=== PATIENT | male | born 1980 | race Caucasian/White ===

== ENCOUNTER 2023-07-14 23:39 | Inpatient (IN) | payer BC, OTHER ==
[2023-07-15] MEDS ORDERED: chlordiazePOXIDE HCL 25 MG CAPSULE PO PRN (01:34)
[2023-07-15] MEDS ORDERED: guaiFENesin 600 MG TABLET.ER (FP) PO PRN (01:40)
[2023-07-15] MEDS ORDERED: ONDANSETRON *ODT* 4 MG TABLET SL PRN (01:40)
[2023-07-15] MEDS ORDERED: BISMUTH SUBSALICYLATE 524 MG/30 ML PO PRN (01:40)
[2023-07-15] MEDS ORDERED: LOPERAMIDE HCL 2 MG CAPSULE PO PRN (01:40)
[2023-07-15] MEDS ORDERED: POLYETHYLENE GLYCOL (HEALTHYLAX) 3350 17 GM PACKET PO PRN (01:40)
[2023-07-15] MEDS ORDERED: MAG HYDROX/AL HYDROX/SIMETH 30 ML UNIT-DOSE CUP PO PRN (01:40)
[2023-07-15] MEDS ORDERED: BENZONATATE 200 MG CAPSULE PO PRN (01:40)
[2023-07-15] MEDS ORDERED: MAGNESIUM HYDROX 2400MG/30ML ORAL SUSPENSION 30 ML CUP PO PRN (01:40)
[2023-07-15] MEDS ORDERED: BENZOCAINE/MENTHOL (CHLORASEPTIC ) LOZENGE MM PRN (01:40)
[2023-07-15] MEDS ORDERED: IBUPROFEN 400 MG TABLET (FP) PO PRN (01:40)
[2023-07-15] MEDS ORDERED: LORazepam 1 MG TABLET PO PRN (01:43)
[2023-07-15] MEDS ORDERED: levETIRAcetam 500 MG TABLET (FP) PO ONE (01:59)
[2023-07-15] MEDS ORDERED: TRIMETHOBENZAMIDE HCL 200MG/2ML INJ IM ONE (01:59)
[2023-07-15] MEDS ORDERED: LISINOPRIL 10 MG TABLET ONE (02:00)
[2023-07-15] MEDS: levETIRAcetam 500 MG TABLET (FP) PO ONE (02:08)
[2023-07-15] MEDS: LISINOPRIL 20 MG TABLET PO ONE (02:08)
[2023-07-15] MEDS: LORazepam 2 MG TABLET PO ONE (02:08)
[2023-07-15] MEDS: TRIMETHOBENZAMIDE HCL 200MG/2ML INJ IM ONE (02:08)
[2023-07-15 03:18] VITALS: BMI 37.5
[2023-07-15] MEDS: chlordiazePOXIDE HCL 25 MG CAPSULE PO ONE (03:23)
[2023-07-15] MEDS: MELATONIN 5 MG TABLETS PO ONE (04:13)
[2023-07-15] MEDS: LORazepam 2 MG TABLET PO SCH (04:13)
[2023-07-15] MEDS ORDERED: chlordiazePOXIDE HCL 25 MG CAPSULE PO SCH (05:00)
[2023-07-15] MEDS: PRENATAL VITAMINS W/ FOLIC ACID TABLET (FP) PO SCH (10:07)
[2023-07-15] MEDS: ZONISAMIDE 100 MG CAPSULE PO SCH (10:46)
[2023-07-15] MEDS ORDERED: ZONISAMIDE 100 MG/10 ML ORAL SUSPENSION PO SCH (11:30)
[2023-07-15] MEDS ORDERED: PATIENT'S OWN MEDICATION (NON-FORMULARY) (Glatiramer Acetate [Copaxone] 40 MG/ML Syringe) SQ SCH (11:30)
[2023-07-15] MEDS: LISINOPRIL 20 MG TABLET PO SCH (12:15)
[2023-07-15] MEDS: THIAMINE 100 MG TABLET PO SCH (21:21)
[2023-07-15] MEDS: MELATONIN 5 MG TABLETS PO SCH (21:22)
[2023-07-16] MEDS ORDERED: chlordiazePOXIDE HCL 25 MG CAPSULE PO SCH (05:00)
[2023-07-16] MEDS: LORazepam 1 MG TABLET PO SCH (05:21)
[2023-07-16 09:29] VITALS: BP 154/100; PULSE 107; RESP 17; TEMP 97.8
[2023-07-16] MEDS ORDERED: LISINOPRIL 20 MG TABLET PO SCH (11:30)
[2023-07-16 11:35] LABS: POTASSIUM 3.5 mmol/L (3.5-5.1)
[2023-07-16 11:41] LABS: CALCIUM 9.3 mg/dL (8.5-10.1)
[2023-07-16 11:43] LABS: BILIRUBIN,TOTAL 4.2 mg/dL (0.2-1)
[2023-07-16 11:45] LABS: ALBUMIN 3.2 g/dl (3.4-5.0); TOT PROT 8.3 g/dl (6.4-8.2)
[2023-07-16 11:46] LABS: CREATININE 0.9 mg/dL (0.55-1.3)
[2023-07-16 11:48] LABS: BLOOD UREA NITROGEN 10.4 mg/dL (7-18)
[2023-07-16 11:53] LABS: HEMATOCRIT 43.2 % (35.4-49); HEMOGLOBIN 15.1 GM/dL (11.7-16.9); MCH 33.9 pg (25.7-33.7); MCHC 34.9 g/dl (32.0-35.9); MEAN CELL VOLUME 97.3 fl (80-96); MEAN PLT VOLUME 9.1 fl (7.5-11.1); PLATELET COUNT 80 10^3/uL (134-434); RBC 4.44 M/mm3 (4.00-5.60); RDW 14.6 % (11.9-15.9); WHITE BLOOD COUNT 3.2 K/mm3 (4.0-10.0)
[2023-07-17] MEDS ORDERED: LORazepam 0.5 MG TABLET PO PRN
[2023-07-17] MEDS ORDERED: chlordiazePOXIDE HCL 10 MG CAPSULE PO PRN
[2023-07-17] MEDS ORDERED: chlordiazePOXIDE HCL 10 MG CAPSULE PO SCH (05:00)
[2023-07-17] MEDS ORDERED: LORazepam 0.5 MG TABLET PO SCH (05:00)
[2023-07-18] MEDS ORDERED: LORazepam 0.5 MG TABLET PO ONE (05:00)
[2023-07-18] MEDS ORDERED: chlordiazePOXIDE HCL 10 MG CAPSULE PO SCH (05:00)
[2023-07-19] MEDS ORDERED: chlordiazePOXIDE HCL 10 MG CAPSULE PO ONE (05:00)
== END 2023-07-16 09:16 | disposition left against medical advice (07) | DRG 894 ==
LOC: YASAS 23:39 → Y3N 07-15 02:16
PROVIDERS: ADMIT Allergy & Immunology; ATTEND Surgery
PROC: HZ2ZZZZ Detoxification Services for Substance Abuse Treatment (ICD-10-PCS; principal; 2023-07-15)
DX: F10.230 Alcohol dependence with withdrawal, uncomplicated (principal); G35 Multiple sclerosis; G40.909 Epilepsy, unspecified, not intractable, without status epilepticus; I10 Essential (primary) hypertension; K21.9 Gastro-esophageal reflux disease without esophagitis
CPT/HCPCS: 36415; 80053; 80305; 85027; 86780; 93005; 93010

== ENCOUNTER 2023-07-26 21:55 | Inpatient (IN) | payer BC, OTHER ==
[2023-07-26 22:26] VITALS: BMI 37.3
[2023-07-26] MEDS ORDERED: LORazepam 1 MG TABLET PO PRN (22:36)
[2023-07-26] MEDS ORDERED: IBUPROFEN 600 MG TABLET (FP) PO PRN (22:38)
[2023-07-26] MEDS ORDERED: POLYETHYLENE GLYCOL (HEALTHYLAX) 3350 17 GM PACKET PO PRN (22:38)
[2023-07-26] MEDS ORDERED: ONDANSETRON *ODT* 4 MG TABLET SL PRN (22:38)
[2023-07-26] MEDS ORDERED: BISMUTH SUBSALICYLATE 524 MG/30 ML PO PRN (22:38)
[2023-07-26] MEDS ORDERED: ACETAMINOPHEN 325 MG TABLET (FP) PO PRN (22:38)
[2023-07-26] MEDS ORDERED: BENZOCAINE/MENTHOL (CHLORASEPTIC ) LOZENGE MM PRN (22:38)
[2023-07-26] MEDS ORDERED: IBUPROFEN 400 MG TABLET (FP) PO PRN (22:38)
[2023-07-26] MEDS ORDERED: BENZONATATE 200 MG CAPSULE PO PRN (22:38)
[2023-07-26] MEDS ORDERED: LOPERAMIDE HCL 2 MG CAPSULE PO PRN (22:38)
[2023-07-26] MEDS ORDERED: guaiFENesin 600 MG TABLET.ER (FP) PO PRN (22:38)
[2023-07-26] MEDS ORDERED: MAG HYDROX/AL HYDROX/SIMETH 30 ML UNIT-DOSE CUP PO PRN (22:38)
[2023-07-26] MEDS ORDERED: MAGNESIUM HYDROX 2400MG/30ML ORAL SUSPENSION 30 ML CUP PO PRN (22:38)
[2023-07-26] MEDS ORDERED: METOPROLOL TARTRATE 25 MG TABLET (FP) ONE (22:59)
[2023-07-26] MEDS ORDERED: LORazepam 2 MG TABLET ONE (22:59)
[2023-07-26] MEDS: LORazepam 2 MG TABLET PO SCH (23:03)
[2023-07-26] MEDS: METOPROLOL TARTRATE 25 MG TABLET (FP) PO ONE (23:04)
[2023-07-26] MEDS: DOCUSATE SODIUM 100 MG CAPSULE (FP) PO SCH (23:48)
[2023-07-26] MEDS: METHOCARBAMOL 500 MG TABLET PO PRN (23:53)
[2023-07-27] MEDS: LISINOPRIL 20 MG TABLET PO SCH (09:31)
[2023-07-27] MEDS: ZONISAMIDE 100 MG CAPSULE PO SCH (09:31)
[2023-07-27] MEDS: PRENATAL VITAMINS W/ FOLIC ACID TABLET (FP) PO SCH (09:32)
[2023-07-27] MEDS ORDERED: MELATONIN 5 MG TABLETS PO SCH (22:00)
[2023-07-27] MEDS: MELATONIN 5 MG TABLETS PO SCH (22:39)
[2023-07-27] MEDS: THIAMINE 100 MG TABLET PO SCH (22:39)
[2023-07-28] MEDS: LORazepam 1 MG TABLET PO SCH (05:35)
[2023-07-29] MEDS ORDERED: LORazepam 0.5 MG TABLET PO PRN
[2023-07-29] MEDS: LORazepam 0.5 MG TABLET PO SCH (05:44)
[2023-07-30] MEDS: LORazepam 0.5 MG TABLET PO ONE (05:38)
[2023-07-30 07:46] VITALS: BP 144/98; PULSE 92; RESP 17; TEMP 98.2
== END 2023-07-30 09:20 | disposition home or self-care (01) | DRG 897 ==
LOC: YASAS 21:55 → Y6N 22:48
PROVIDERS: ADMIT Allergy & Immunology; ATTEND Surgery
PROC: HZ2ZZZZ Detoxification Services for Substance Abuse Treatment (ICD-10-PCS; principal; 2023-07-26)
DX: F10.230 Alcohol dependence with withdrawal, uncomplicated (principal); G35 Multiple sclerosis; I10 Essential (primary) hypertension; K59.01 Slow transit constipation; R76.11 Nonspecific reaction to tuberculin skin test without active tuberculosis; Z86.2 Personal history of diseases of the blood and blood-forming organs and certain disorders involving the immune mechanism
CPT/HCPCS: 71046-TC-FY; 80305; 80307; 83036

== ENCOUNTER 2023-08-24 09:09 | Inpatient (IN) | payer BC, OTHER ==
[2023-08-24 09:49] VITALS: BMI 37.3
[2023-08-24] MEDS ORDERED: LORazepam 1 MG TABLET PO PRN (10:11)
[2023-08-24] MEDS ORDERED: hydrOXYzine PAMOATE 25 MG CAPSULE (FP) PO PRN (10:12)
[2023-08-24] MEDS ORDERED: DICYCLOMINE HCL 10 MG CAPSULE PO PRN (10:12)
[2023-08-24] MEDS ORDERED: LOPERAMIDE HCL 2 MG CAPSULE PO PRN (10:12)
[2023-08-24] MEDS ORDERED: BENZOCAINE/MENTHOL (CHLORASEPTIC ) LOZENGE MM PRN (10:12)
[2023-08-24] MEDS ORDERED: BISMUTH SUBSALICYLATE 262 MG/15 ML BTL PO PRN (10:12)
[2023-08-24] MEDS ORDERED: MAGNESIUM HYDROX 2400MG/30ML ORAL SUSPENSION 30 ML CUP PO PRN (10:12)
[2023-08-24] MEDS ORDERED: guaiFENesin 600 MG TABLET.ER (FP) PO PRN (10:12)
[2023-08-24] MEDS ORDERED: IBUPROFEN 400 MG TABLET (FP) PO PRN (10:12)
[2023-08-24] MEDS ORDERED: BENZONATATE 200 MG CAPSULE PO PRN (10:12)
[2023-08-24] MEDS ORDERED: IBUPROFEN 600 MG TABLET (FP) PO PRN (10:12)
[2023-08-24] MEDS ORDERED: MAG HYDROX/AL HYDROX/SIMETH 30 ML UNIT-DOSE CUP PO PRN (10:12)
[2023-08-24] MEDS ORDERED: POLYETHYLENE GLYCOL (HEALTHYLAX) 3350 17 GM PACKET PO PRN (10:12)
[2023-08-24] MEDS ORDERED: LORazepam 2 MG TABLET ONE (10:59)
[2023-08-24] MEDS ORDERED: ONDANSETRON *ODT* 4 MG TABLET ONE (10:59)
[2023-08-24] MEDS: ONDANSETRON *ODT* 4 MG TABLET SL PRN (11:03)
[2023-08-24] MEDS: LORazepam 2 MG TABLET PO SCH (11:04)
[2023-08-24] MEDS ORDERED: LISINOPRIL 10 MG TABLET ONE (11:10)
[2023-08-24] MEDS: LISINOPRIL 20 MG TABLET PO SCH (11:11)
[2023-08-24] MEDS: ZONISAMIDE 100 MG CAPSULE PO SCH (12:19)
[2023-08-24 13:08] VITALS: RESP 18
[2023-08-24] MEDS: DOCUSATE SODIUM 100 MG CAPSULE (FP) PO SCH (22:24)
[2023-08-24] MEDS: THIAMINE 100 MG TABLET PO SCH (22:25)
[2023-08-24] MEDS: MELATONIN 5 MG TABLETS PO SCH (22:26)
[2023-08-25 05:26] VITALS: PULSE 88
[2023-08-25 08:49] VITALS: BP 124/78; TEMP 100
[2023-08-25] MEDS: PRENATAL VITAMINS W/ FOLIC ACID TABLET (FP) PO SCH (10:16)
[2023-08-25 12:22] LABS: HEMATOCRIT 40.2 % (35.4-49); MCH 34.2 pg (25.7-33.7); MCHC 34.9 g/dl (32.0-35.9); PLATELET COUNT 185 10^3/uL (134-434); RDW 15.3 % (11.9-15.9); WHITE BLOOD COUNT 4.9 K/mm3 (4.0-10.0)
[2023-08-25 12:41] LABS: POTASSIUM 3.7 mmol/L (3.5-5.1)
[2023-08-25 12:43] LABS: ALBUMIN 3.8 g/dl (3.4-5.0); BLOOD UREA NITROGEN 15.8 mg/dL (7-18); CALCIUM 9.1 mg/dL (8.5-10.1)
[2023-08-25 12:47] LABS: BILIRUBIN,TOTAL 1.8 mg/dL (0.2-1); TOT PROT 8.5 g/dl (6.4-8.2)
[2023-08-26] MEDS ORDERED: LORazepam 1 MG TABLET PO SCH (05:00)
[2023-08-27] MEDS ORDERED: LORazepam 0.5 MG TABLET PO PRN
[2023-08-27] MEDS ORDERED: LORazepam 0.5 MG TABLET PO SCH (05:00)
[2023-08-28] MEDS ORDERED: LORazepam 0.5 MG TABLET PO ONE (05:00)
== END 2023-08-25 11:25 | disposition home or self-care (01) | DRG 897 ==
LOC: YASAS 09:09 → Y6N 10:42
PROVIDERS: ADMIT Allergy & Immunology; ATTEND Surgery
PROC: HZ2ZZZZ Detoxification Services for Substance Abuse Treatment (ICD-10-PCS; principal; 2023-08-24)
DX: F10.230 Alcohol dependence with withdrawal, uncomplicated (principal); F10.282 Alcohol dependence with alcohol-induced sleep disorder; G40.909 Epilepsy, unspecified, not intractable, without status epilepticus; G35 Multiple sclerosis; I10 Essential (primary) hypertension; K21.9 Gastro-esophageal reflux disease without esophagitis; Z86.11 Personal history of tuberculosis
CPT/HCPCS: 36415; 80053; 80305; 85027; Q0162